=== PATIENT | male | born 1975 | race Caucasian/White ===

== ENCOUNTER 2025-05-21 07:27 | Observation (INO) ==
--- NOTE | 2025-05-14 14:28 | Anesthesiology Consultation ---
Date of Service May 14, 2025 Assessment & Plan (1) Encounter for pre-operative examination: - Infectious disease screening: Per assessment on 05/13/25- No known recent infectious disease contacts or current infectious disease symptoms. - S/P Cystoscopy, Laser Lithotripsy, stent, Left Renal Tumor Lesion biopsy (04/05/25): LMA#5, [facility]. No issues noted per post-op anesthesia progress note. Chart Review Chart Review: Acceptable Risk for Surgery and Patient NOT seen in Pre Admission Testing History Surgery Operation Date: 05/21/25 07:30 Proposed Procedures p Robotic Laparoscopic Nephroureterectomy - Left - Abel Rm MD Height/Weight Height: 5 ft 11 in Weight: 90.718 kg Allergies Allergy/AdvReac Type Severity Reaction Status Date / Time Beef Containing Products Allergy Unknown Gastrointestinal Verified 05/13/25 07:36 Upset beef derived (bovine) Allergy Unknown Gastrointestinal Verified 05/13/25 07:36 Upset garlic Allergy Unknown Gastrointestinal Verified 05/13/25 07:36 Upset grape Allergy Unknown Gastrointestinal Verified 05/13/25 07:36 Upset grape flavor Allergy Unknown Gastrointestinal Verified 05/13/25 07:36 Upset grape seed Allergy Unknown Gastrointestinal Verified 05/13/25 07:36 Upset rice Allergy Unknown Gastrointestinal Verified 05/13/25 07:36 Upset No Known Drug Allergies Allergy Verified 05/13/25 07:37 Medications Home Medications Medication Instructions Recorded Confirmed Last Taken tramadol 50 mg tablet 50 mg PO Q6H PRN pain #20 tabs 04/05/25 05/13/25 Unknown Past Medical History Medical History History of COVID-19 2019- resolved History of giardia infection Hx 01/2025, treated with abx Hx of hiatal hernia Hx of motion sickness Sleep apnea CPAP Transitional cell carcinoma left kidney dx 03/2025 Past Family History Family History Other Adopted Past Surgical History Surgical History History of ankle surgery right > reconstruction History of colonoscopy History of esophagogastroduodenoscopy (EGD) History of David fundoplication History of postoperative nausea and vomiting History of repair of hiatal hernia [place] teeth extracted Social History Smoking Status: Never smoker Do You Dip or Chew Tobacco: No Hx Alcohol Use: No Hx Substance Use: No substance use type: does not use Testing Laboratory Results 05/08/25 WBC 7.52 H/H 15.0/44.1 PLATELETS 206 SODIUM 140 POTASSIUM 3.7 CHLORIDE 107 CO2 30.0 BUN 20.0 CREATININE 1.10 GLUCOSE 80 URINE CULTURE no growth Electrocardiogram Date: 01/29/25 NSR at 68bpm. NS ST/TWA. Chest X-Ray Date: 01/29/25 FINDINGS: A PA chest radiograph is obtained. No prior studies are available for comparison at the time of dictation. The cardiomediastinal silhouette is unremarkable. The lungs and pleural spaces are clear. No pneumothorax is seen. The bony thorax is grossly intact. IMPRESSION: No acute cardiopulmonary abnormality is identified.
[~2025-05-21 07:27] MED LIST: ACETAMINOPHEN 1000 MG/100 ML IV IV ONE; DEXAMETHASONE SOD INJ 4 MG/ML VIAL ONE; LIDOCAINE 2% 2 ML VIAL/AMP(20MG/ML) INFIL ONE; MIDAZOLAM HCL 1 MG/ML 2ML VIAL ONE; ONDANSETRON INJ 2 MG/ML 2 ML VIAL ONE; PROPOFOL IV EMULSION 10 MG/ML 20 ML VIAL IV ONE; ROCURONIUM BROMIDE 10 MG/ML 5 ML VIAL IV ONE
--- NOTE | 2025-05-21 07:28 | History & Physical Bridge Note ---
Date of Service May 21, 2025 History & Physical Bridge Note I have examined the patient, reviewed the History & Physical and in the interval since the performance of the History & Physical I have noted the following changes of clinical significance: no changes noted
[2025-05-21] MEDS ORDERED: PROPOFOL IV EMULSION 10 MG/ML 20 ML VIAL IV ONE ×2 (07:32→11:17)
[2025-05-21] MEDS: LACTATED RINGER'S 1,000 ML IV SCH ×2 (08:07→14:25)
[2025-05-21] MEDS ORDERED: ONDANSETRON INJ 2 MG/ML 2 ML VIAL IV PRN ×2 (08:10→14:05)
[2025-05-21] MEDS ORDERED: HYDROmorphone INJ 2 MG/ML SYR/VIAL IV PRN (08:10)
[2025-05-21] MEDS ORDERED: ATROPINE SULFATE 0.1 MG/ML 10ML SYR IV PRN (08:10)
[2025-05-21] MEDS ORDERED: PROMETHAZINE HCL 6.25 MG in SODIUM CHLORIDE 0.9% 50 ML IV PRN (08:10)
[2025-05-21] MEDS ORDERED: SCOPOLAMINE 1 MG/72 HR TDSY PATCH TD ONE (08:31)
[2025-05-21] MEDS ORDERED: MIDAZOLAM HCL 1 MG/ML 2ML VIAL ONE (08:39)
[2025-05-21] MEDS ORDERED: ROCURONIUM BROMIDE 10 MG/ML 5 ML VIAL IV ONE ×2 (09:09→10:34)
[2025-05-21] MEDS ORDERED: SUGAMMADEX SODIUM 200 MG/2 ML VIAL IV ONE ×2 (12:12→12:24)
[2025-05-21] MEDS ORDERED: KETOROLAC 30 MG/ML VIAL ONE (12:26)
[2025-05-21] MEDS: BUPIVACAINE 0.5 % 5 MG/1 ML MPF 30ML VIAL ONE (12:28)
[2025-05-21] MEDS: BUPIVACAINE LIPOSOME 1.3% 266 MG/20 ML VIAL ONE (12:30)
--- NOTE | 2025-05-21 12:38 | Operative Report ---
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 Post-Op Diagnosis: Malignant Neoplasm of Unspecified Ureter I identified the patient and participated in the time-out.: Yes Procedure Operation Date: 05/21/25 08:40 Actual Procedures p Robotic assisted left Laparoscopic Nephroureterectomy (Left) - Abel Rm MD Surgeon Abel Rm MD Sales Representative Door To Door Tabitha Chen; Rolando Warren, PAC Estimated Blood Loss 25 Findings Consistent with Post-Op Diagnosis Specimens Left kidney and for ureter Description of Procedure Patient was identified in the preoperative holding area, appropriate informed consent reviewed and completed the patient was transported to the operating suite. Upon arrival he received appropriate anesthesia and preoperative antibiotics. He was placed in modified flank position with his pelvis left flat but his shoulder and upper torso rolled up with the left side towards the ceiling. He was braced and padded appropriately and his arm was crossed across his chest and taped in a natural position. He was sterilely prepped and draped and a Oconnell catheter was inserted on the field. I insufflated the abdomen by insertion of a Veress needle into the left upper quadrant. There was uniform insufflation and I marked tentative port locations with the first port being approximately 1 fingerbreadth below the costal margin of the rectus border next port approximately 6 cm inferior to that and 1 cm medial. The next port below again sick centimeters inferior and 1 cm medial and the last the same ratio away. The third port down was planned to be a 12 mm port to allow insertion of the robotic stapler. The other ports were all 8 mm robotic ports. The first port was passed with a visual obturator and 0 degree lens. Inspection revealed healthy abdominal wall without adhesions and the subsequent ports were placed without incident. An additional 12 mm promotional advertising assistant port was placed through a prior incision and utilized for his cholecystectomy which was in the upper midline approximately 4 cm above his umbilicus. There were no adhesions in this area. That was a 12 mm port. I then docked the robot. I initially docked with the camera in the second to lowest port. This allowed me to access an area at the lower pole of the kidney and continue to manipulate the robot into the deep pelvis. I began by incising the white line of Toldt medializing the colon from the area overlying the kidney all the way into the pelvis. I dissected this further and further medially until I encountered the gonadal vein and ureter. I elevated the ureter and dissected around it circumferentially. A clip was placed across the mid ureter to prevent tumor spillage. I spared the gonadal and I continued dissection initially superior towards the kidney but then much more distally towards the deep pelvis. Care was used to avoid encroachment into the ureter as well as adjacent structures. I traced this all the way down until its insertion into the bladder. I was able to tent some detrusor mucosa as I dissected around it to pull the UO up towards my intra peritoneal field. I incised on the superior medial aspect and inspected internally identifying the UO. I placed a 3 oh V- Loc stitch at this apex of the incision and left it out of my immediate field of dissection to be able to be used for retraction and ultimate closure of the bladder as I continued my dissection. Care was used to dissect around the ureter entirely and excise it. I then closed the bladder opening in 2 layers with a 3 oh V-Loc. We did test this with irrigation through the Oconnell catheter and had no evidence of leak. Of note, in the midst of this dissection I did remove a segment of the left vas deferens. I then ensured that the left ureter was mobilized entirely and turn my attention back to the kidney. At the inferior edge of the kidney I was able to dissect onto the psoas muscle between the gonadal and the ureter and elevate the kidney. This placed the hilar structures on stretch and I dissected along the anterior surface of the gonadal vein until I encountered the inferior margin of the renal vein. I dissected and circumferentially around the renal vein which branches relatively early. I was able to find the common aspect of this and dissect with the plan of transection in this location. Immediately behind the vein was the renal artery which additionally branched shortly after leaving the aorta. I d issected circumferentially around this and cleared the posterior aspect of it. Further complicating the hilar dissection was a series of branches from the gonadal to other veins around the area. Care was used to avoid unnecessary transection of these but if you had to be sacrificed in the midst of the dissection. After completing the dissection I utilized a robotic staple load across the artery. A single load controlled common artery. I then passed a single staple load across the renal vein before its branching point and was able to transect it. I was able to spare the gonadal in this process. At that time only the superior and lateral attachments of the kidney remained and I was able to dissect around the lateral aspect with minor use of bipolar and monopolar electrocautery. The superior aspect took a bit more caution to separate and leave the adrenal gland and tail of the pancreas behind. Caution was used in between bipolar and monopolar was able to separate the 2. The kidney was entirely freed and was pushed into the deep pelvis. Hemostasis was excellent in the surgical field. There was no evidence of significant adenopathy or other abnormality along the hilar structures. At that time I closed the 12 mm promotional advertising assistant in the 12 mm robotic port utilizing a Albino-Naz device and a 0 Vicryl. I then made a midline incision below the umbilicus down to the pubic symphysis and transected to the midline of the rectus abdominis. After piercing into the peritoneum I was able to grasp the kidney and remove the kidney and ureter en bloc. We reapproximated the posteri or aspect of the rectus abdominis and peritoneum followed by closure of the anterior rectus sheath with a running PDS. The incision was infiltrated with half percent Marcaine and Exparel mixed as were the other incisions. A drain had been guided in through one of the robotic ports and was sutured in place. The other incisions were all closed with 4-0 Monocryl and Dermabond. Oconnell catheter was left in place for the time being. He was reversed of anesthesia and taken to the recovery room in stable condition. Tabitha Chen and Rolando Warren, PAC assisted throughout the case from incision to closure. I attest to the content of the Intraoperative Record and any orders documented therein. Any exceptions are noted below.
[2025-05-21 13:26] LABS: Hematocrit (blood only) 41.6 % (42.0-52.0); Hemoglobin 14.0 g/dl (14.0-18.0); Immature Granulocytes # (auto) 0.07 K/uL (0.01-0.20); Immature Granulocytes % (auto) 0.5 %; Mean Corpuscular Hemoglobin 30.2 pg (25.0-34.0); Mean Corpuscular Volume 89.8 fL (80.0-100.0); Platelet Count 211 K/uL (130-400); RDW Standard Deviation 44.4 fL (36.4-46.3); Red Blood Count 4.63 M/uL (4.70-6.10); White Blood Count 13.92 K/ul (4.8-10.8)
[2025-05-21 13:46] LABS: Anion Gap 8.0 (3-11); Blood Urea Nitrogen 23.0 mg/dl (6-23); Calcium 8.5 mg/dl (8.6-10.3); Carbon Dioxide 25.0 mmol/L (21-32); Chloride 106.0 mmol/L (98-107); Creatinine Clr Calc Pharmacy 76.9 ml/min; Glucose 140.0 mg/dl (70-99(Fasting)); Potassium 4.4 mmol/L (3.5-5.1); Sodium 139.0 mmol/L (136-145)
--- NOTE | 2025-05-21 14:08 | Anesthesiology Progress Note ---
Date of Service May 21, 2025 Anesthesia Post Procedure Vital Signs Vital Signs: Temp Pulse Pulse Resp BP Pulse Ox O2 Del Method 05/21/25 13:35 65 18 140/87 100 Nasal Cannula 05/21/25 13:25 36.6 C 61 20 141/85 H 100 Nasal Cannula 05/21/25 13:15 67 20 149/81 H 100 Oxymask 05/21/25 13:05 69 20 128/91 98 Oxymask 05/21/25 12:55 67 22 129/72 100 Oxymask 05/21/25 12:47 36.3 C L 69 24 122/66 95 Oxymask 05/21/25 07:46 Room Air, CPAP 05/21/25 07:38 36.7 C 67 18 141/88 H 98 Room Air, CPAP O2 Flow Rate 05/21/25 13:35 2 05/21/25 13:25 2 05/21/25 13:15 4 05/21/25 13:05 6 05/21/25 12:55 6 05/21/25 12:47 6 05/21/25 07:46 05/21/25 07:38 Pain Intensity Right Groin: Pain Intensity: 3 Transfer of Care Handoff Completed per policy Notes Mental Status: alert / awake / arousable and participated in evaluation Patient Amnestic to Procedure: Yes Nausea / Vomiting: adequately controlled Pain: adequately controlled Airway Patency, RR, SpO2: stable & adequate BP & HR: stable & adequate Hydration State: stable & adequate Anesthetic Complications: no major complications apparent
[2025-05-21] MEDS: MANNITOL 25% 12.5 GM/50 ML VIAL IV ONE (15:12)
[2025-05-21] MEDS: MoRPHine SULFATE 4 MG/ML 1 ML CARP\\VIAL IV PRN (17:08)
[2025-05-21] MEDS: ACETAMINOPHEN 325 MG TAB PO PRN (17:09)
[2025-05-21] MEDS: DOCUSATE SODIUM 100 MG CAP PO SCH (20:59)
[2025-05-21] MEDS: HEPARIN SOD 5,000 UNIT/0.5 ML VIAL SQ SCH (20:59)
[2025-05-22 06:53] LABS: Hematocrit (blood only) 36.9 % (42.0-52.0); Hemoglobin 12.5 g/dl (14.0-18.0); Immature Granulocytes # (auto) 0.04 K/uL (0.01-0.20); Immature Granulocytes % (auto) 0.4 %; Mean Corpuscular Hemoglobin 30.0 pg (25.0-34.0); Mean Corpuscular Volume 88.5 fL (80.0-100.0); Platelet Count 204 K/uL (130-400); RDW Standard Deviation 44.3 fL (36.4-46.3); Red Blood Count 4.17 M/uL (4.70-6.10); White Blood Count 10.15 K/ul (4.8-10.8)
[2025-05-22 07:06] LABS: Anion Gap 7.0 (3-11); Blood Urea Nitrogen 23.0 mg/dl (6-23); Calcium 8.2 mg/dl (8.6-10.3); Carbon Dioxide 26.0 mmol/L (21-32); Chloride 105.0 mmol/L (98-107); Creatinine Clr Calc Pharmacy 54.1 ml/min; Glucose 89.0 mg/dl (70-99(Fasting)); Potassium 4.1 mmol/L (3.5-5.1); Sodium 138.0 mmol/L (136-145)
--- NOTE | 2025-05-22 08:38 | Urology Progress Note ---
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: Plan Postop day #1 status post left nephro ureterectomy Recovery seems to be very much on pace his incisions are appropriate ELIAS output is low, I think we can likely remove this later today but would like him to ambulate before removal His clear urine is encouraging I would ultimately like to offer a voiding trial by Tuesday Given that he has continued pain in the right inguinal hernia, he has requested an evaluation with general surgery while he is here Think we can try to accommodate this advance diet now Admission and Anticipated Discharge Date Admission Date: May 21, 2025 Subjective Recovery very much on pace He is sore Has not really ambulated yet but overall doing quite well He is still bothered by his right inguinal hernia, he reports that when he stands up it bulges and has been bothering him since surgery I did look at this area during surgery and he did have a significant amount of material protruding into it but he did have a small visible hernia in that area and some minor inflammation around the Physical Exam Physical Exam: Abdomen soft, incisions appropriate ELIAS with scant output Urine clear Results & Data Vital Signs (Past 12 Hours) Vital Signs Temp Pulse Resp BP Pulse Ox O2 Del Method 05/22/25 07:57 36.6 C 63 18 117/69 92 Room Air 05/22/25 03:25 37.0 C 77 16 130/68 97 Room Air 05/21/25 23:10 36.6 C 63 18 117/72 96 Room Air PG Care Time/CCT Total # of Minutes Spent Total Time Spent with Patient: Total time spent is greater than 50% in coordination of care (as documented) at patient's floor/unit and/or counseling patient: Coding Level of Care Code None Diagnoses 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
--- NOTE | 2025-05-22 14:09 | Surgery Consultation ---
Date of Consultation May 22, 2025 Assessment & Plan (1) Right inguinal hernia: This is a 50yM who has PMH of hiatal hernia repair and now s/p robotic assisted left laparoscopic nephroureterectomy on 05/[address] Rm. We are consulted today for symptomatic right inguinal hernia. Patient states he noticed his hernia in the right side start to become noticeable and bothersome for him about 2 weeks ago after moving some lumber. For workup of this on 05/16 he did undergo an US that showed a small fat filled hernia. It has become progressively more bothersome to him. When he gets up and walks about he states it bulges out and is worse in the evening. He gets pretty bad pain and burning with this. He denies any obstructive symptoms in terms of nausea/vomiting or lack of bowel function. Never had hernia repair on that side in the past. Patient would very much like his hernia repaired this admission if possible so he can recover from that and his nephrectomy in one time frame instead of requiring multiple periods of being laid up with restrictions after surgery. Patient thus far tolerating a diet. He is passing gas. Urology states patient is recovering from his surgery well. There is no concerns for infection from their point of view. WBC 10.1, Hbg 12.5, Cr 1.9. Vitals are stable. Abdomen soft, some expected post op discomfort karis incisionally. All incision are c/d/i without signs of infection. ELIAS drain serosang. Discussed situation with the on-call surgeon dr. wheatley who is willing to accommodate the patient's request for inguinal hernia repair with mesh this admission. If anything emergent comes that would bump this case we would have to likely plan on elective/outpatient repair instead as it appears hernia is fat filled without obstructive symptoms or bowel incarceration so it is not an emergent situation at this time. The patient does understand this. We will plan on open approach given recent surgery by urology which would likely make laparoscopic more difficult. Patient is in agreement and understands. Keep NPO at midnight. Plan on tentative repair of hernia tomorrow. Supervising Physician Co-Signing Physician Notes This case has been discussed with the surgical PA and I agree with this plan. History of Present Illness Attending Physician: Abel Rm MD History of Present Illness This is a 50yM who has PMH of hiatal hernia repair and now s/p robotic assisted left laparoscopic nephroureterectomy on 05/[address] Rm. We are consulted today for symptomatic right inguinal hernia. Patient states he noticed his hernia in the right side start to become noticeable and bothersome for him about 2 weeks ago after moving some lumber. On 05/16 he did undergo an US that showed a small fat filled hernia. It has become progressively more bothersome to him. When he gets up and walks about he states it bulges out and is worse in the evening. He gets pretty bad pain and burning with this. He denies any obstructive symptoms in terms of nausea/vomiting or lack of bowel function. Never had hernia repair on that side in the past. Patient would very much like his hernia repaired this admission if possible so he can recover from that and his nephrectomy in one time frame instead of requiring multiple periods of being laid up with restrictions after surgery. Patient thus far tolerating a diet. He is passing gas. No concerns for infection. Allergies Allergy/AdvReac Type Severity Reaction Status Date / Time chlorhexidine Allergy Severe Hives Verified 05/21/25 07:37 Beef Containing Products AdvReac Unknown Gastrointestinal Verified 05/21/25 07:36 Upset beef derived (bovine) AdvReac Unknown Gastrointestinal Verified 05/21/25 07:36 Upset garlic AdvReac Unknown Gastrointestinal Verified 05/21/25 07:36 Upset grape AdvReac Unknown Gastrointestinal Verified 05/21/25 07:36 Upset grape flavor AdvReac Unknown Gastrointestinal Verified 05/21/25 07:36 Upset grape seed AdvReac Unknown Gastrointestinal Verified 05/21/25 07:36 Upset rice AdvReac Unknown Gastrointestinal Verified 05/21/25 07:36 Upset Home Medications Medication Instructions Recorded Confirmed Type No Known Home Medications 05/21/25 05/21/25 History Patient History Medical History Hx of motion sickness Transitional cell carcinoma left kidney dx 03/2025 History of giardia infection Hx 01/2025, treated with abx Hx of hiatal hernia History of COVID-19 2020- resolved Sleep apnea CPAP Surgical History History of postoperative nausea and vomiting History of ankle surgery right > reconstruction History of esophagogastroduodenoscopy (EGD) History of colonoscopy History of David fundoplication History of repair of hiatal hernia [place] teeth extracted Family History Other Adopted Social History Smoking Status: Never smoker Second Hand Exposure: No; Do You Dip or Chew Tobacco: No; Tobacco Cessation Education Requested by Patient: No Hx Alcohol Use: No Hx Substance Use: No Preferred Language: Vietnamese Communication Ability: Effective Hall Cleaner Required: No Beliefs That Will Affect Care: None Current Living Situation: Spouse Other Information That Helps Us Care for You: No Feels Safe at Home: Yes Safety Concerns: Feels Safe At This Time Assistive Devices: None Review of Systems Constitutional: no fever and no chills Respiratory: no dyspnea Cardiovascular: no chest pain Gastrointestinal: + abdominal pain; no nausea, no vomiting and no change in bowel habits + painful right groin region, hernia con tents bulge with standing up and ambulating Genitourinary: no problem reported Physical Exam Physical Exam: awake/alert, no distress Constitutional: well developed and well nourished; no acute distress Respiratory: normal respiratory effort Gastrointestinal (Abdomen): Inspection/Auscultation: + abdomen distended (mild), + abdominal surgical incision (c/d/i no signs of infection) and + abdominal surgical drain present (serosang) Percussion/Palpation: + abdomen tender (ttp in r groin region. no significant bulging noted) and abdomen soft Results & Data Vital Signs (Past 12 Hours) Vital Signs Temp Pulse Resp BP Pulse Ox O2 Del Method 05/22/25 10:48 98.2 F 74 18 110/72 96 Room Air 05/22/25 07:57 97.9 F 63 18 117/69 92 Room Air 05/22/25 07:50 Room Air, CPAP 05/22/25 03:25 98.6 F 77 16 130/68 97 Room Air Diagnostic Findings US scrotum/testicle CLINICAL HISTORY: 50 years-old Male with Z59.9 - Problem related to housing and economic circumsta.... COMPARISON STUDY: CT 03/20/2025 TECHNIQUE: Real-time, grayscale, and color Doppler sonography of the testes and scrotum is performed. Images are reviewed in the transverse and longitudinal planes. FINDINGS: RIGHT HEMISCROTUM: The right testis measures 4.9 x 2.1 x 3.0 cm and the parenchyma appears unremarkable. No intratesticular mass is seen. Normal- appearing arterial inflow is present within the right testicle. The right epididymal head appears normal. No varicocele or hydrocele is identified. LEFT HEMISCROTUM: The left testis measures 4.8 x 2.0 x 3.1 cm and the parenchyma appears unremarkable. No intratesticular mass is seen. Normal-appearing arterial inflow is present within the left testicle. The left epididymal head appears normal. No varicocele or hydrocele is identified. Small fat filled right inguinal hernia, opening of 1.9 cm which the electrical research engineer reports is reducible during the study. IMPRESSION: 1. Normal sonographic appearance of the testicles. 2. Small fat filled right inguinal hernia. ACT 112: Negative or not required by law. The above report was generated using voice recognition software. It may contain grammatical, syntax or spelling errors. Electronically signed by: Yair Staley M.D. 05/16/2025 10:29 AM PG Care Time/CCT Total # of Minutes Spent Total Time Spent with Patient: Total time spent is greater than 50% in coordination of care (as documented) at patient's floor/unit and/or counseling patient: Coding Level of Care Code 46079 IN/OBS CONSULT LVL 2,35M Diagnoses Right inguinal hernia K40.90
[2025-05-23 08:51] LABS: Hematocrit (blood only) 36.9 % (42.0-52.0); Hemoglobin 12.3 g/dl (14.0-18.0); Immature Granulocytes # (auto) 0.02 K/uL (0.01-0.20); Immature Granulocytes % (auto) 0.3 %; Mean Corpuscular Hemoglobin 29.8 pg (25.0-34.0); Mean Corpuscular Volume 89.3 fL (80.0-100.0); Platelet Count 182 K/uL (130-400); RDW Standard Deviation 43.9 fL (36.4-46.3); Red Blood Count 4.13 M/uL (4.70-6.10); White Blood Count 7.19 K/ul (4.8-10.8)
[2025-05-23 09:03] LABS: Anion Gap 7.0 (3-11); Blood Urea Nitrogen 21.0 mg/dl (6-23); Calcium 8.3 mg/dl (8.6-10.3); Carbon Dioxide 27.0 mmol/L (21-32); Chloride 106.0 mmol/L (98-107); Creatinine Clr Calc Pharmacy 54.4 ml/min; Glucose 90.0 mg/dl (70-99(Fasting)); Potassium 4.1 mmol/L (3.5-5.1); Sodium 140.0 mmol/L (136-145)
--- NOTE | 2025-05-23 11:59 | Urology Progress Note ---
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: Plan Postop day #2 status post left nephro ureterectomy Doing well, progressing as expected He is afebrile and hemodynamically stable Labs today show WBCs 7.19, hemoglobin 12.3, creatinine 1.91 His incisions are appropriate Oconnell intact and draining appropriately, urine is clear yellow Reports minimal pain He is currently NPO for possible right inguinal hernia repair later today with general surgery Continue supportive care and pain management as needed Encourage ambulation Maintain Oconnell catheter Will reassess later today, possible discharge home today or tomorrow pending patient status Admission and Anticipated Discharge Date Admission Date: May 21, 2025 Subjective Patient seen at bedside this morning. He is awake and resting in bed on arrival. No acute distress. Oconnell draining clear yellow urine. Incisions appropriate. ELIAS drain removed yesterday. Reports minimal pain. Has ambulated without issue. No fevers, chills, nausea, vomiting. He is NPO for possible hernia repair with general surgery today. Review of Systems Constitutional: as per Subjective / HPI Genitourinary: + as per Subjective / HPI Physical Exam Constitutional: no acute distress Respiratory: no respiratory distress and no labored breathing Gastrointestinal (Abdomen): Abdomen soft, nontender. Incisions appropriate, Dermabond intact. 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
[2025-05-23] MEDS: LACTATED RINGER'S 1,000 ML IV SCH (13:37)
[2025-05-23] MEDS ORDERED: ATROPINE SULFATE 0.1 MG/ML 10ML SYR IV PRN (14:16)
[2025-05-23] MEDS ORDERED: ONDANSETRON INJ 2 MG/ML 2 ML VIAL IV PRN (14:16)
--- NOTE | 2025-05-23 14:16 | Anesthesiology Consultation ---
Date of Service May 23, 2025 Assessment & Plan Chart Review Chart Review: Acceptable Risk for Surgery Consults Requested none ASA ASA2 Proposed Anesthesia Anesthesia Type: General Risk / Benefits Reviewed With: PT / POA / Parent / Guardian, Accepts Plan and Informed Consent Obtained History Surgery Operation Date: 05/21/25 08:40 Proposed Procedures p Robotic assisted Laparoscopic Nephroureterectomy - Left - Abel Rm MD Operation Date: 05/23/25 12:10 Proposed Procedures p Right Open Inguinal Hernia Repair - Rose Marie Kessler DO Height/Weight Height: 5 ft 11 in Weight: 94.7 kg Allergies Allergy/AdvReac Type Severity Reaction Status Date / Time chlorhexidine Allergy Severe Hives Verified 05/21/25 07:37 Beef Containing Products AdvReac Unknown Gastrointestinal Verified 05/21/25 07:36 Upset beef derived (bovine) AdvReac Unknown Gastrointestinal Verified 05/21/25 07:36 Upset garlic AdvReac Unknown Gastrointestinal Verified 05/21/25 07:36 Upset grape AdvReac Unknown Gastrointestinal Verified 05/21/25 07:36 Upset grape flavor AdvReac Unknown Gastrointestinal Verified 05/21/25 07:36 Upset grape seed AdvReac Unknown Gastrointestinal Verified 05/21/25 07:36 Upset rice AdvReac Unknown Gastrointestinal Verified 05/21/25 07:36 Upset Medications Home Medications Medication Instructions Recorded Confirmed Last Taken No Known Home Medications 05/21/25 05/21/25 Unknown Active Medications Generic Name Dose Route Start Last Admin Trade Name Freq PRN Reason Stop Dose Admin Acetaminophen 650 mg 05/21/25 14:05 05/22/25 08:19 Acetaminophen 325 Mg Tab PO 06/20/25 14:04 650 mg Q6H PRN Administration Pain Docusate Sodium 100 mg 05/21/25 21:00 05/23/25 08:30 Docusate Sodium 100 Mg Cap PO 06/20/25 20:59 Not Given BID CHELITA Heparin Sodium (Porcine) 5,000 units 05/21/25 21:00 05/22/25 20:54 Heparin Sod 5,000 Unit/0.5 Ml Vial SQ 06/20/25 20:59 5,000 units Q12 CHELITA Administration Lactated Ringer's 1,000 mls @ 15 mls/hr 05/23/25 13:15 05/23/25 13:37 Lr IV 05/26/25 13:14 15 mls/hr .Q24H CHELITA Administration Morphine Sulfate 1 - 2 mg 05/21/25 14:05 05/21/25 17:08 Morphine Sulfate 4 Mg/Ml 1 Ml Carp\Vial IV 06/04/25 14:04 2 mg Q3H PRN Administration Pain Oxycodone HCl 10 mg 05/21/25 14:05 05/22/25 20:59 Oxycodone Hcl Ir 5 Mg Tab (Immediate Release) PO 06/04/25 14:04 10 mg Q4H PRN Administration SEVERE Pain (7,8,9,10) NPO Date Last Intake of Fluids: 05/22/25 Time Last Intake of Fluids: 20:40 Date Last Intake of Solids: 05/22/25 Time Last Intake of Solids: 18:00 Past Medical History Medical History Hx of motion sickness Transitional cell carcinoma left kidney dx 03/2025 History of giardia infection Hx 01/2025, treated with abx Hx of hiatal hernia History of COVID-19 2020- resolved Sleep apnea CPAP Past Family History Family History Other Adopted Past Surgical History Surgical History History of postoperative nausea and vomiting History of ankle surgery right > reconstruction History of esophagogastroduodenoscopy (EGD) History of colonoscopy History of David fundoplication History of repair of hiatal hernia Gilman teeth extracted Social History Smoking Status: Never smoker Do You Dip or Chew Tobacco: No Hx Alcohol Use: No Hx Substance Use: No substance use type: does not use Physical Exam Vital Signs Last Vital Signs Temp 36.4 C L 05/23/25 13:33 Pulse 71 05/23/25 13:33 Resp 20 05/23/25 13:33 BP 132/77 05/23/25 13:33 Pulse Ox 95 05/23/25 13:33 O2 Del Method Room Air 05/23/25 13:33 O2 Flow Rate 2 05/21/25 14:45 Constitutional no acute distress ENMT Thyromental Distance: > or= 3.5 Finger Breadths Mallampati Class: III Respiratory normal respiratory effort, lungs clear to auscultation Cardiovascular RRR, no murmur, no edema Psychiatric Orientation: alert and oriented x 3 Testing Laboratory Results 05/23/25 08:08 05/23/25 08:08 Blood Type A Positive 05/21/25 08:10 Antibody Screen NEGATIVE 05/21/25 08:10
--- NOTE | 2025-05-23 14:51 | History & Physical Bridge Note ---
Date of Service May 23, 2025 History & Physical Bridge Note I have examined the patient, reviewed the History & Physical and in the interval since the performance of the History & Physical I have noted the following changes of clinical significance: no changes noted. Pt presents to [facility] for open right inguinal hernia repair. The details of the procedure have been explained to him including the risks, benefits and alternatives. He expressed understanding and consent has been obtained.
[2025-05-23] MEDS ORDERED: PROPOFOL IV EMULSION 10 MG/ML 20 ML VIAL IV ONE (14:57)
[2025-05-23] MEDS ORDERED: MIDAZOLAM HCL 1 MG/ML 2ML VIAL ONE (14:57)
[2025-05-23] MEDS ORDERED: DEXAMETHASONE SOD INJ 4 MG/ML VIAL ONE (14:57)
[2025-05-23] MEDS ORDERED: LIDOCAINE 2% 2 ML VIAL/AMP(20MG/ML) INFIL ONE (14:57)
[2025-05-23] MEDS ORDERED: ONDANSETRON INJ 2 MG/ML 2 ML VIAL ONE (14:57)
[2025-05-23] MEDS ORDERED: KETOROLAC 30 MG/ML VIAL ONE (16:35)
[2025-05-23] MEDS ORDERED: ceFAZolin 330 MG/ML 1 GM VIAL ONE ×2 (16:35)
[2025-05-23] MEDS: BUPIVACAINE/EPINEPHRINE 0.5% MPF 1:200,000 30 ML VIAL ONE (16:37)
--- NOTE | 2025-05-23 17:33 | Anesthesiology Progress Note ---
Date of Service May 23, 2025 Anesthesia Post Procedure Vital Signs Vital Signs: Temp Pulse Pulse Resp BP BP Pulse Ox 05/23/25 17:25 83 16 116/71 96 05/23/25 17:15 94 H 16 123/73 96 05/23/25 17:05 78 22 136/74 96 05/23/25 16:55 87 19 119/65 98 05/23/25 16:49 36.3 C L 88 14 127/67 95 05/23/25 13:33 36.4 C L 71 20 132/77 95 05/23/25 07:14 36.6 C 69 18 129/80 98 05/22/25 22:53 37.4 C 76 16 131/77 93 05/22/25 20:50 O2 Del Method O2 Flow Rate 05/23/25 17:25 Nasal Cannula 2 05/23/25 17:15 Nasal Cannula 2 05/23/25 17:05 Oxymask 5 05/23/25 16:55 Oxymask 10 05/23/25 16:49 Oxymask 10 05/23/25 13:33 Room Air 05/23/25 07:14 Room Air 05/22/25 22:53 Room Air 05/22/25 20:50 Room Air, CPAP Pain Intensity Right Groin: Pain Intensity: 7 Transfer of Care Handoff Completed per policy Notes Mental Status: alert / awake / arousable Patient Amnestic to Procedure: Yes Nausea / Vomiting: adequately controlled Pain: adequately controlled Airway Patency, RR, SpO2: stable & adequate BP & HR: stable & adequate Hydration State: stable & adequate Anesthetic Complications: no major complications apparent
--- NOTE | 2025-05-23 17:54 | Operative Report ---
PG Post Operative Report Pre & Post Diagnosis Operation Date: 05/23/25 12:10 Pre-Op Diagnosis: Right inguinal hernia Post-Op Diagnosis: Right inguinal hernia I identified the patient and participated in the time-out.: Yes Procedure Operation Date: 05/23/25 12:10 Actual Procedures p Right Open Inguinal Hernia Repair(Right) - Rose Marie Kesselr DO Surgeon Rose Marie Kesselr DO Blade Changer Tabitha Chen; Rolando Warren, PAC Estimated Blood Loss 5 Findings Consistent with Post-Op Diagnosis Specimens None Anesthesia Type General Indications Patient with very painful right inguinal hernia reportedly preventing him from walking. Hernia was noted after lifting heavy 2 weeks ago. He is POD s/p ro botic left nephroureterectomy with urology and requested this hernia be repaired prior to going home as he is unable to mobilize. Description of Procedure The patient was brought back to the operating room and placed on the operating room table in supine position. He was connected to cardiac and oxygen monitoring, supplemental O2 was provided and SCDs were applied to bilateral lower extremities. The patient was administered general anesthesia and a secure airway was established. The abdomen and groins were prepped and draped in typical sterile fashion and a timeout was conducted. Local anesthetic was used anesthetize the planned nerve pathways. The subcutaneous tissues around the ASIS and the subcutaneous tissue for planned incision between the ASIS and the pubic tubercle along the inguinal canal. An incision was made with a 15 blade and the subcutaneous tissues were dissected. The subcutaneous vein was suture- ligated using 3-0 silk suture and then transected. The subcutaneous tissue was further dissected to the fascia which was carefully incised using a 15 blade. The inguinal ligament was then fully open to the external ring and then posteriorly towards the internal ring. The spermatic cord was isolated and a Elizabeth drain was wrapped around it. A lipoma of the cord was isolated and away from the spermatic cord. This lipoma consisted of preperitoneal fat was reduced back into the abdomen. The internal ring was reinforced using 3-0 silk sutures. This was not closed too tightly 4 proper blood flow to the spermatic cord. Local anesthetic was used in the surrounding tissues. A 13cm keyhole patch mesh was applied to the inguinal floor. This was sutured to Manohar's ligament medially using 0 Prolene sutures. The lower edge of the mesh was sutured to the shelving edge of the inguinal ligament using a running Prolene suture. The upper edge was sutured using interrupted Prolene sutures along the internal oblique fascia. The keyhole around the spermatic cord was secured with Prolene suture and the tails of the keyhole were placed beneath the external oblique aponeurosis beyond the internal inguinal ring. The tails were sutured together using a Prolene stitch. The inguinal ligament was closed using a running 2-0 Vicryl suture from the external inguinal ring laterally. Carmen's fascia was approximated using interrupted 3-0 Vicryl suture. The deep dermis was also loosely approximated with 3-0 Vicryl suture. A subcuticular running 4-0 Vicryl suture was used to close the skin. The area was wiped clean with a saline soaked lap pad and dried. The incision was further sealed with Dermabond. The patient tolerated the procedure well. He was awakened from anesthesia and a secure airway was removed. He was transferred to recovery in stable condition. I attest to the content of the Intraoperative Record and any orders documented therein. Any exceptions are noted below.
[2025-05-24 07:41] LABS: Hematocrit (blood only) 36.7 % (42.0-52.0); Hemoglobin 12.4 g/dl (14.0-18.0); Immature Granulocytes # (auto) 0.06 K/uL (0.01-0.20); Immature Granulocytes % (auto) 0.5 %; Mean Corpuscular Hemoglobin 29.6 pg (25.0-34.0); Mean Corpuscular Volume 87.6 fL (80.0-100.0); Platelet Count 187 K/uL (130-400); RDW Standard Deviation 40.8 fL (36.4-46.3); Red Blood Count 4.19 M/uL (4.70-6.10); White Blood Count 12.20 K/ul (4.8-10.8)
[2025-05-24 07:55] LABS: Anion Gap 7.0 (3-11); Blood Urea Nitrogen 23.0 mg/dl (6-23); Calcium 8.7 mg/dl (8.6-10.3); Carbon Dioxide 27.0 mmol/L (21-32); Chloride 105.0 mmol/L (98-107); Creatinine Clr Calc Pharmacy 60.0 ml/min; Glucose 92.0 mg/dl (70-99(Fasting)); Potassium 4.4 mmol/L (3.5-5.1); Sodium 139.0 mmol/L (136-145)
[2025-05-24 08:31] VITALS: BP 134/81; RESP 18; TEMP 98.3; O2SAT 98
--- NOTE | 2025-05-24 09:47 | Urology Progress Note ---
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: (2) Right inguinal hernia: Plan TCC of the upper left ureter/renal pelvis Status post nephro ureterectomy Pathology returned, TA, 2.5 cm We reviewed the pathology All margins are negative Had a right inguinal hernia repair yesterday General Surgery Feels he is recovering very well from that as well and is anxious to go home Plan: Remove catheter now After void, discharge home Follow-up in 2 weeks as an outpatient Admission and Anticipated Discharge Date Admission Date: May 21, 2025 Subjective Subjectively doing really well today Pain has been well-controlled He feels much better after his right inguinal hernia repair yesterday Urine is still clear Labs are appropriate Pathology returned last night, we reviewed that today Physical Exam Constitutional: well developed and well nourished Respiratory: no respiratory distress Cardiovascular: Extremities: no pedal edema Gastrointestinal (Abdomen): Incisions appropriate Results & Data Vital Signs (Past 12 Hours) Vital Signs Temp Pulse Resp BP BP Pulse Ox O2 Del Method 05/24/25 08:28 36.8 C 63 18 134/81 98 Room Air 05/24/25 03:31 36.4 C L 73 16 114/70 96 Room Air 05/23/25 23:21 36.6 C 78 16 117/64 95 Room Air PG Care Time/CCT Total # of Minutes Spent Total Time Spent with Patient: Total time spent is greater than 50% in coordination of care (as documented) at patient's floor/unit and/or counseling patient: Coding Level of Care Code None Diagnoses 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
--- NOTE | 2025-05-24 09:59 | Surgery Progress Note ---
<Statement entered by Rose Marie Kessler, DO - 05/24/25 13:01> I have seen and examined this patient this am. I agree with this plan Date of Service May 24, 2025 Assessment & Plan (1) Right inguinal hernia: Plan: Patient is s/p robotic assisted left laparoscopic nephroureterectomy on 05/[address] Rm and now POD #1 s/p open right inguinal hernia repair by Dr. Nikkie Iverson. -Doing overall well this morning, pain controlled, tolerating diet without issues and is anxious to go home. -VSS, afebrile, and incision is c/d/i without any overlying signs of infection. -Patient was given post-operative instructions and he will follow up with Dr. Kessler in our outpatient setting in approximately 2 weeks. -From a general surgery perspective, patient is stable for discharge when cleared by urlogy team. Admission and Anticipated Discharge Date Admission Date: May 21, 2025 Subjective Patient seen and evaluated this morning. He is up walking around in hallways this morning, feeling well overall Pain controlled, only requiring minimal narcotic pain medication Passing gas however no BM yet VSS, afebrile, WBC 12.2 Physical Exam Constitutional: WD/WN, vitals as above Respiratory: normal respiratory effort, lungs clear to auscultation Cardiovascular: Rate/Rhythm: regular rate Gastrointestinal (Abdomen): Abdomen soft, nondistended, surgical sites with Dermabond in place. Right groin incision c/d/i without any overlying signs of infection Results & Data Vital Signs (Past 12 Hours) Vital Signs Temp Pulse Resp BP BP Pulse Ox O2 Del Method 05/24/25 08:28 36.8 C 63 18 134/81 98 Room Air 05/24/25 03:31 36.4 C L 73 16 114/70 96 Room Air 05/23/25 23:21 36.6 C 78 16 117/64 95 Room Air PG Care Time/CCT Total # of Minutes Spent Total Time Spent with Patient: Total time spent is greater than 50% in coordination of care (as documented) at patient's floor/unit and/or counseling patient: [place]oding [place] [address] Post Operative Follow-Up Patient Type Established History Problem Focused Exam Problem Focused Medical Decision Making Straight Forward Diagnoses Right inguinal hernia K40.90
[2025-05-24 11:27] VITALS: PULSE 83
== END 2025-05-24 12:50 | disposition home or self-care (01) | DRG 657 ==
LOC: ASU 07:27 → 3W 12:44 → INTOOBSV 12:44